=== PATIENT | male | born 1995 | race Caucasian/White ===

== ENCOUNTER 2017-01-04 16:12 | Emergency (ER) | payer BC ==
[~2017-01-04] VITALS: Ht 188 cm; Wt 77.3 kg
[2017-01-04 16:19] VITALS: BP 128/59; PULSE 77; TEMP 97.5
[2017-01-04] MEDS ORDERED: NORCO 325 MG-51 TAB PO (16:45)
== END 2017-01-04 17:06 | disposition home or self-care (01) ==
LOC: COL.ER 16:12 → EDSEX 16:27 → COL.ER 16:27
DX: T20.26XA Burn of second degree of forehead and cheek, initial encounter (principal); X03.8XXA Other exposure to controlled fire, not in building or structure, initial encounter